=== PATIENT | female | born 1970 | race Caucasian/White ===

== ENCOUNTER → 2020-12-30 | Day surgery (SDC) | payer OTHER ==
[~2020-12-30] MED LIST: ALLEGRA ALLERG180 MG PO; ASPIRIN EC81 MG PO; B COMPLEX1 EACH PO; CALCIUM MAGNES1 EAC1 PO; MELATIN3 MG PO; VITAMIN D350 MC5 PO
[2020-12-30 08:38] LABS: HCT 41.6 % (37.0-47.0); HGB 14.4 g/dl (12.5-16.0); MCH 33.3 pg (25.0-31.0); MCHC 34.6 g/dL (32.0-36.0); MCV 96.3 fL (78.0-100.0); MPV 9.8 fL (6.0-9.5); RBC 4.32 M/uL (4.20-5.40); RDW 11.9 % (11.5-14.0); WBC 4.2 K/uL (4.0-10.5)
[2020-12-30 08:55] LABS: ALBUMIN 4.3 g/dL (3.4-5.0); BILIRUBIN - TOTAL 0.5 mg/dL (0.2-1.0); BUN/CREAT RATIO (CALC) 13.5 RATIO; CREATININE 0.74 mg/dL (0.51-0.95); POTASSIUM 3.9 mmol/L (3.5-5.1); TOTAL PROTEIN 7.3 g/dL (6.4-8.2)
== END | disposition home or self-care (01) ==
LOC: FAS 08:02
PROVIDERS: Surgery
DX: Z12.11 Encounter for screening for malignant neoplasm of colon (principal); G43.909 Migraine, unspecified, not intractable, without status migrainosus; J30.2 Other seasonal allergic rhinitis; Z79.82 Long term (current) use of aspirin; Z79.899 Other long term (current) drug therapy; Z88.5 Allergy status to narcotic agent; Z91.013 Allergy to seafood; Z91.040 Latex allergy status
CPT/HCPCS: 36415; 80053; J2405; J2704; J7120